=== PATIENT | female | born 1980 | race Hispanic/Latino ===

== ENCOUNTER 2022-03-27 09:29 | Emergency (ER) | payer SELFPAY ==
[2022-03-27] MEDS ORDERED: SODIUM CHLORIDE 0.9% 1000 ML 1,000 ML IV ONE (09:58)
[2022-03-27 10:08] VITALS: BP 131/80
[2022-03-27 10:20] LABS: Basophils % (Auto) 0.6 % (0.0-1.8); Eosinophils # (Auto) 0.1 K/mm3 (0.0-0.4); Eosinophils % (Auto) 1.9 % (0.0-4.3); Hematocrit 39.1 % (30.3-42.9); Hemoglobin 12.9 gm/dl (10.1-14.3); Lymphocytes # (Auto) 0.6 K/mm3 (1.2-5.4); Lymphocytes % (Auto) 10.5 % (13.4-35.0); Mean Corpuscular HGB Conc 33 % (30-34); Mean Corpuscular Volume 89 fl (79-97); Monocytes # (Auto) 0.3 K/mm3 (0.0-0.8); Monocytes % (Auto) 5.3 % (0.0-7.3); Platelet Count 288 K/mm3 (140-440); Red Blood Count 4.39 M/mm3 (3.65-5.03); Red Cell Distribution Width 12.6 % (13.2-15.2)
[2022-03-27 10:43] LABS: Alanine Aminotransferase 39 units/L (7-56); Albumin 4.7 g/dL (3.9-5); BUN/Creatinine Ratio 23; Blood Urea Nitrogen 16 mg/dL (7-17); Calcium 9.3 mg/dL (8.4-10.2); Hemolysis Index 24
--- NOTE | 2022-03-27 11:06 | Consultation ---
History of Present Illness - Reason for Consult Consult date: 03/27/22 Reason for consult: Substance use - History of Present Psychiatric Illness HPI: 42 year old female arrived to ED by [facility] for CC. possible drug overdose of meth as reported by patient. EMS reported that they were called by PD because she was chasing down cars with a tire iron. EMS reports that when in ambulance she tried to jump out and was given 5 mcg of Versed and 5mcg of hald ol. Unable to obtain PMH from patient. Patient slightly combative to nurse on arrival. The patient was seen today. She is a/o x 2. She thinks she is at a gas station. Her speech is garbled, and at times she is difficult to understand. She is fidgety. She appears slightly subdued. The patient states she did "meth." She then says "only one time though." I asked the patient was there any other drugs she did. She replies "no." I ask her was she drinking, she replied "I have no idea." The patient didn't remember why she was brought to the hospital. She says she has a history of depression and anxiety. The patient states she takes prozac and gabapentin, but states she's been off for about a week. She could not recall the doses. The patient states she lives with her mother. She denies SI/HI or hallucinations. PAST PSYCHIATRIC HISTORY Diagnoses: Depression, anxiety Suicide attempts or Self-harm behavior: Denies Prior psychiatric hospitalizations: Denies Substance Abuse history: Methamphetamine Previous psychiatric medications tried: prozac, gabapentin Outpatient treatment: yes PAST MEDICAL HISTORY: None reported Family Psychiatric History: None reported or documented SOCIAL HISTORY Marital Status: Single Living Arrangements: With mother Employment Status: Unemployed Access to guns/weapons: Denies Education: History of Abuse: Denies Legal History: Denies REVIEW OF SYSTEMS Constitutional: Negative for weight loss ENT: Negative for stridor Respiratory: Negative for cough or hemoptysis All other systems reviewed and are negative MENTAL STATUS EXAMINATION General Appearance and Behavior: Age appropriate, good hygiene, wearing appropriate clothes, fidgety, cooperative, subdued Cooperation: cooperative Psychomotor Behavior: Psychomotor normal Mood: okay Affect and affective range: congruent with stated mood Thought Process: disoriented Thought Content: None Speech: garbled, difficult to understand Suicidal Ideation: Denies Homicidal Ideation: Denies Hallucinations: Denies Delusions: None elicited Impulse Control: Limited Insight and Judgment: Limited insight and judgment Memory: Limited Attention: distracted Orientation: Alert, oriented Assessment Methamphetamine Intoxication with Delirium TREATMENT Prozac 30mg po daily Gabapentin 100mg po TID Vistaril 50mg po BID Geodon 20mg IM q4h prn agitation Medical: per primary Sitter: Defer to primary Disposition: Do not recommend acute psychiatric inpatient treatment. Will follow for med management if the patient is admitted to the medical floor. Thank you for this consult. Case staffed with Dr. Coleman. Medications and Allergies Allergies Allergy/AdvReac Type Severity Reaction Status Date / Time No Known Allergies Allergy Verified 03/27/22 10:57 Mental Status Exam - Vital signs Last Vital Signs Temp 97.0 F L 03/27/22 10:07 Pulse 96 H 03/27/22 10:07 Resp 18 03/27/22 10:07 BP 131/80 03/27/22 10:07 Pulse Ox 99 03/27/22 10:07 Results Result Diagrams: 03/27/22 10:09 03/27/22 10:09 Abnormal lab results 03/27/22 03/27/22 03/27/22 Range/Units 10:09 10:09 10:09 RDW 12.6 L (13.2-15.2) % Lymph % (Auto) 10.5 L (13.4-35.0) % Lymph # (Auto) 0.6 L (1.2-5.4) K/mm3 Seg Neutrophils % 81.7 H (40.0-70.0) % AST 41 H (5-40) units/L Salicylates < 0.3 L (2.8-20.0) mg/dL Acetaminophen (10.0-30.0) ug/mL 03/27/22 Range/Units 10:09 RDW (13.2-15.2) % Lymph % (Auto) (13.4-35.0) % Lymph # (Auto) (1.2-5.4) K/mm3 Seg Neutrophils % (40.0-70.0) % AST (5-40) units/L Salicylates (2.8-20.0) mg/dL Acetaminophen 5.0 L (10.0-30.0) ug/mL All other labs normal.
[2022-03-27] MEDS ORDERED: ZIPRASIDONE MESYLATE 20 MG VIAL IM PRN (11:16)
[2022-03-27 11:24] LABS: Cannabinoid Screen,Urine Negative; Cocaine Screen,Urine Negative; Methadone Screen,Urine Negative; Opiate Screen,Urine Negative
[2022-03-27 11:28] LABS: Amorphous Crystals,Urine 3+; Bacteria,Urine 1+ /HPF (Negative); Bilirubin,Urine NEG (Negative); Blood,Urine MOD (Negative); Color,Urine Yellow (Yellow); Mucus,Urine FEW /HPF; Protein,Urine <15 mg/dL mg/dL (Negative)
[2022-03-27 11:36] LABS: WBC,Urine < 1.0 /HPF (0.0-6.0)
[2022-03-27] MEDS ORDERED: FLUoxetine 10 MG TAB PO SCH (12:00)
[2022-03-27 13:01] LABS: Amphetamine Screen,Urine PRESUMPTIVE POSITIVE
[2022-03-27 13:02] LABS: Benzodiazepines Screen,Urine PRESUMPTIVE POSITIVE
[2022-03-27] MEDS ORDERED: GABAPENTIN 100 MG CAP PO SCH (14:00)
--- NOTE | 2022-03-27 14:33 | Emergency Department Report ---
ED Medical Clearance HPI - General Chief complaint: Medical Clearance Stated complaint: DRUG INGESTION/METH Time Seen by Provider: 03/27/22 09:58 Source: EMS Mode of arrival: Stretcher - History of Present Illness Initial comments: ngested meth last night and now experiencing delirium. EMS gave haldol and versed (5mg each) Complaint: medical clearance request Reason for Medical Clearance: intoxication Place: street Alledged Intoxication: Yes Compliant with Home Medications: No Associated Symptoms: denies: chest pain, shortness of breath, palpitations, diaphoresis Home medications: Previous Rx's Medication Instructions Recorded Last Taken Type FLUoxetine HCL [FLUoxetine] 30 mg PO DAILY #45 03/27/22 Unknown Rx Gabapentin 100 mg PO TID #90 capsule 03/27/22 Unknown Rx hydrOXYzine PAMOATE [Vistaril] 50 mg PO BID PRN #60 capsule 03/27/22 Unknown Rx Allergies/Adverse reactions: Allergies Allergy/AdvReac Type Severity Reaction Status Date / Time No Known Allergies Allergy Verified 03/27/22 10:57 ED Review of Systems ROS: Stated complaint: DRUG INGESTION/METH Other details as noted in HPI Constitutional: denies: chills, fever Eyes: denies: eye pain, eye discharge, vision change ENT: denies: ear pain, throat pain Respiratory: denies: cough, shortness of breath, wheezing Cardiovascular: denies: chest pain, palpitations Endocrine: no symptoms reported Gastrointestinal: denies: abdominal pain, nausea, diarrhea Genitourinary: denies: urgency, dysuria, discharge Musculoskeletal: denies: back pain, joint swelling, arthralgia Skin: denies: rash, lesions Neurological: denies: headache, weakness, paresthesias Psychiatric: denies: anxiety, depression Hematological/Lymphatic: denies: easy bleeding, easy bruising ED Past Medical Hx - Past Medical History Previous Medical History?: No Hx Hypertension: No - Medications Home Medications: Home Medications Medication Instructions Recorded Confirmed Last Taken Type FLUoxetine HCL [FLUoxetine] 30 mg PO DAILY #45 03/27/22 Unknown Rx Gabapentin 100 mg PO TID #90 capsule 03/27/22 Unknown Rx hydrOXYzine PAMOATE [Vistaril] 50 mg PO BID PRN #60 capsule 03/27/22 Unknown Rx ED Physical Exam - General Limitations: No Limitations General appearance: alert - Head Head exam: Present: atraumatic, normocephalic - Eye Eye exam: Present: normal appearance - ENT ENT exam: Present: mucous membranes moist - Neck Neck exam: Present: normal inspection - Respiratory Respiratory exam: Present: normal lung sounds bilaterally. Absent: respiratory distress - Cardiovascular Cardiovascular Exam: Present: normal rhythm, tachycardia. Absent: systolic murmur, diastolic murmur, rubs, gallop - GI/Abdominal GI/Abdominal exam: Present: soft, normal bowel sounds - Extremities Exam Extremities exam: Present: normal inspection - Back Exam Back exam: Present: normal inspection - Neurological Exam Neurological exam: Present: alert - Psychiatric Psychiatric exam: Present: anxious, flat affect. Absent: suicidal ideation - Skin Skin exam: Present: warm, dry, intact, normal color. Absent: rash ED Course Vital Signs 03/27/22 03/27/22 09:52 10:07 Temperature 97.0 F L Pulse Rate 120 H 96 H Respiratory 18 18 Rate Blood Pressure 142/98 131/80 [Right] O2 Sat by Pulse 99 99 Oximetry ED Medical Decision Making - Lab Data Result diagrams: 03/27/22 10:09 03/27/22 10:09 - Medical Decision Making work up showed methamphetamine use that patient admits to, fluids given Mental status improved, ,MH evaluation showed she is not meeting criteria for inpatient psych pr medicine admission, sppoke with Zakia Downs [employer] and only way is get her voluntarily to drug rehab, pt denies any SI or HI . spoke with mother zayda in [facility] [phone] , obviously pt has long history of drug addiction, and her in [place], has 2 kids under grandmother custody, pt left [place] 10 days ago and drove here , her car got towed yesterday and EMS transferred her here for methmphitamine use , will discharge ptient from here and take her to [facility] voluntarily for drug rehab, communication and contact of mother will be provide to transfer to [facility] if possible for drug rehab ED Disposition Clinical Impression: Methamphetamine use Disposition: 01 HOME / SELF CARE / HOMELESS Is pt being admited?: No Does the pt Need Aspirin: No Condition: Stable Instructions: Substance Use Disorder and Mental Illness, Amphetamines Use Disorder Prescriptions: FLUoxetine HCL [FLUoxetine] 30 mg PO DAILY #45 Gabapentin 100 mg PO TID #90 capsule hydrOXYzine PAMOATE [Vistaril] 50 mg PO BID PRN #60 capsule PRN Reason: Anxiety Referrals: PRIMARY CARE, [Primary Care Provider] - 3-5 Days
== END 2022-03-27 17:21 | disposition home or self-care (01) ==
LOC: ED 09:29
DX: F15.90 Other stimulant use, unspecified, uncomplicated (principal); Z79.899 Other long term (current) drug therapy
CPT/HCPCS: 36415; 80053; 80307; 81001; 85025; 96360; 99284; J7030; 80320; G0480

== ENCOUNTER 2022-03-27 21:06 | Emergency (ER) | payer SELFPAY ==
[2022-03-28] MEDS ORDERED: SULFAMETHOXAZOLE/TRIMETHOPRIM 800/160MG DS TAB PO ONE (11:42)
--- NOTE | 2022-03-28 11:48 | Emergency Department Report ---
ED Female HPI - General Chief complaint: Medical Clearance Stated complaint: NEEDS DETOX/MULTIPLE COMPLAINTS Time Seen by Provider: 03/28/22 11:27 Source: patient Mode of arrival: Ambulatory Limitations: No Limitations - History of Present Illness Initial comments: 42-year-old white female presents to the emergency department for evaluation of vaginal pain and swelling. She also is requesting medical clearance so that she can go for detox from methamphetamines. Patient was seen yesterday for detox, she was evaluated by the emergency room physician, had labs drawn, and was seen by the inpatient psych assessment team. Per their notes, patient was not eligible for inpatient detox placement nor inpatient medical placement. She was discharged home and told to go to [facility]. Patient states that she did go to [facility], walk-in, but was told that they did not have any beds, so she decided to come back to the emergency department. She states that she has had pain and swelling to her vaginal area for the past several days. She denies fever, abdominal pain, vaginal discharge, and dysuria. MD Complaint: other (Pain and swelling to perineal area) -: Gradual, days(s) (3-4) Location: perineum Severity scale (0 -10): 5 Quality: aching Consistency: intermittent Are you Now?: No Associated Symptoms: denies: vaginal discharge, vaginal bleeding, abdominal pain, nausea/vomiting, fever/chills, headaches, loss of appetite, dysuria, hematuria, rash, seizure, shortness of breath, syncope, weakness - Related Data Sexually active: Yes Previous Rx's Medication Instructions Recorded Last Taken Type FLUoxetine HCL [FLUoxetine] 30 mg PO DAILY #45 03/27/22 Unknown Rx Gabapentin 100 mg PO TID #90 capsule 03/27/22 Unknown Rx hydrOXYzine PAMOATE [Vistaril] 50 mg PO BID PRN #60 capsule 03/27/22 Unknown Rx Sulfamethoxazole/Trimethoprim 1 each PO BID #14 tab 03/28/22 Unknown Rx [Bactrim DS TAB] Allergies Allergy/AdvReac Type Severity Reaction Status Date / Time No Known Allergies Allergy Verified 03/27/22 22:46 ED Review of Systems ROS: Stated complaint: NEEDS DETOX/MULTIPLE COMPLAINTS Other details as noted in HPI Comment: All other systems reviewed and negative Constitutional: denies: chills, fever ENT: denies: congestion Respiratory: denies: shortness of breath Cardiovascular: denies: chest pain, palpitations, dyspnea on exertion Gastrointestinal: denies: abdominal pain, nausea, vomiting, diarrhea, hematemesis, melena, hematochezia Genitourinary: denies: urgency, dysuria, frequency, hematuria, discharge Musculoskeletal: denies: back pain Neurological: denies: headache, weakness Psychiatric: denies: homicidal thoughts, suicidal thoughts ED Past Medical Hx - Past Medical History Previous Medical History?: No Hx Hypertension: No - Surgical History Past Surgical History?: No - Social History Smoking Status: Never Smoker Substance Use Type: None - Medications Home Medications: Home Medications Medication Instructions Recorded Confirmed Last Taken Type FLUoxetine HCL [FLUoxetine] 30 mg PO DAILY #45 03/27/22 Unknown Rx Gabapentin 100 mg PO TID #90 capsule 03/27/22 Unknown Rx hydrOXYzine PAMOATE [Vistaril] 50 mg PO BID PRN #60 capsule 03/27/22 Unknown Rx Sulfamethoxazole/Trimethoprim 1 each PO BID #14 tab 03/28/22 Unknown Rx [Bactrim DS TAB] ED Physical Exam - General Limitations: No Limitations General appearance: alert, in no apparent distress - Head Head exam: Present: atraumatic, normocephalic - Eye Eye exam: Present: normal appearance. Absent: conjunctival injection - Neck Neck exam: Present: normal inspection. Absent: lymphadenopathy - Respiratory Respiratory exam: Present: normal lung sounds bilaterally. Absent: respiratory distress, wheezes, rales, rhonchi, chest wall tenderness - Cardiovascular Cardiovascular Exam: Present: regular rate, normal heart sounds - GI/Abdominal GI/Abdominal exam: Present: soft, normal bowel sounds. Absent: distended, tenderness, guarding, rebound, rigid - External exam: Present: erythema, swelling. Absent: normal external exam (Noted to have several abscessed areas each about 1 cm in diameter with purulent drainage noted from 2.) - Extremities Exam Extremities exam: Present: normal inspection, normal capillary refill. Absent: pedal edema, joint swelling, calf tenderness - Back Exam Back exam: Present: normal inspection. Absent: tenderness, CVA tenderness (R) - Neurological Exam Neurological exam: Present: alert, oriented X3 - Psychiatric Psychiatric exam: Present: normal affect, normal mood - Skin Skin exam: Present: warm, dry, intact, normal color ED Course Vital Signs 03/27/22 03/28/22 03/28/22 22:44 09:25 13:11 Temperature 97.6 F 97.8 F 98.2 F Pulse Rate 82 86 70 Respiratory 18 18 16 Rate Blood Pressure 113/53 Blood Pressure 115/59 117/70 [Left] O2 Sat by Pulse 99 97 99 Oximetry ED Medical Decision Making - Medical Decision Making 42-year-old white female presents to the emergency department for evaluation of vaginal pain and swelling. She also is requesting medical clearance so that she can go for detox from methamphetamines. Patient was seen yesterday for detox, she was evaluated by the emergency room physician, had labs drawn, and was seen by the inpatient psych assessment team. Per their notes, patient was not eligible for inpatient detox placement nor inpatient medical placement. She was discharged home and told to go to [facility] as a walk-[facility]. Patient states that she did go to [facility], walk-in, but was told that they did not have any beds, so she decided to come back to the emergency department. She states that she has had pain and swelling to her vaginal area for the past several days. She denies fever, abdominal pain, vaginal discharge, and dysuria. Exam consistent with several perineal abscesses with purulent drainage. Patient will be treated with 7-day course of Bactrim DS twice a day. She is advised to take medications as prescribed, increase noncaffeinated fluid intake, and follow-up with her primary care provider or health department for further evaluation and management. Discussed with patient findings from yesterday's visit we stated that she was not a candidate for inpatient admission. Consult placed for case management, and they talk with patient and gave her some resources that she can use upon discharge. Plan of care reviewed with patient, she verbalized understanding of and agreement with. Critical care attestation.: If time is entered above; I have spent that time in minutes in the direct care of this critically ill patient, excluding procedure time. ED Disposition Clinical Impression: Perineal abscess, Encounter for medical screening examination Disposition: HOME / SELF CARE / HOMELESS Is pt being admited?: No Does the pt Need Aspirin: No Condition: Stable Instructions: Skin Abscess, [id number] Additional Instructions: Take medication as prescribed. Follow-up at [facility] for detox. Return to the emergency department as needed. Prescriptions: Sulfamethoxazole/Trimethoprim [Bactrim DS TAB] 1 each PO BID #14 tab Referrals: [facility] [Outside] - 3-5 Days [facility] [Outside] - 3-5 Days [facility] [Outside] - 3-5 Days [facility] [Outside] - 3-5 Days [facility] [Other] - 3-5 Days Time of Disposition: 11:51
[2022-03-28 13:12] VITALS: BP 117/70
== END 2022-03-28 14:54 | disposition home or self-care (01) ==
LOC: ED 21:06
DX: L02.215 Cutaneous abscess of perineum (principal)
CPT/HCPCS: 99282